=== PATIENT | female | born 1990 | race Caucasian/White ===

== ENCOUNTER 2022-10-17 11:21 | Emergency (ER) | payer OTHER, SELFPAY ==
[2022-10-17] MEDS ORDERED: DIAZEPAM 5 MG TABLET ONE (12:01)
[2022-10-17] MEDS ORDERED: HYDROCODONE/APAP 7.5/325 MG TAB ONE (12:01)
[2022-10-17] MEDS ORDERED: TDAP (DIPHTH,PERTUSS(ACELL),TET VAC) 0.5 ML VIAL IMVAC ONE (12:22)
--- NOTE | 2022-10-17 13:10 | EDPHYS ---
Physician Documentation [facility] Name: Sinai Loyola Age: 32 yrs Sex: Female : 1990 Arrival Date: 10/17/2022 Time: 11:21 Bed 9 Private MD: ED Physician Vince Bethea HPI: 10/17 11:51 This 32 yrs old Female presents to ER via Ambulatory with complaints of Dog Bite. snw 11:51 The patient was bitten on the right wrist/forearm, abdomen, and right anterior thigh. snw Onset: The symptoms/episode began/occurred suddenly, just prior to arrival. Animal information: The animal was reported to appear healthy. Animal's vaccinations are up to date. The animal is known and can be quarantined, Animal control has been notified. Secondary to the bite the patient reports pain, multiple puncture wounds. Severity of symptoms: At their worst the symptoms were moderate. The patient has not experienced similar symptoms in the past. The patient has not recently seen a physician. 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 - Social history:: Smoking status: Patient denies any tobacco usage or history of. ROS: 11:50 Constitutional: Negative for fever, chills, and weight loss, Eyes: Negative for injury, snw pain, redness, and discharge, ENT: Negative for injury, pain, and discharge, Neck: Negative for injury, pain, and swelling, Cardiovascular: Negative for chest pain, palpitations, and edema, Respiratory: Negative for shortness of breath, cough, wheezing, and pleuritic chest pain, Abdomen/GI: Negative for abdominal pain, nausea, vomiting, diarrhea, and constipation, Back: Negative for injury and pain, : Negative for injury, bleeding, discharge, and swelling, MS/Extremity: Negative for injury and deformity, Neuro: Negative for headache, weakness, numbness, tingling, and seizure, Psych: Negative for depression, anxiety, suicide ideation, homicidal ideation, and hallucinations. 11:50 Skin: Positive for puncture, Deni Dog bit pt when she went to groom a client's other dog. Pt with deep punctures to right forearm, abdomen, and right anterior upper thigh. Exam: 11:48 Head/Face: Normocephalic, atraumatic. Eyes: Pupils equal round and reactive to light, snw extra-ocular motions intact. Lids and lashes normal. Conjunctiva and sclera are non-icteric and not injected. Cornea within normal limits. Periorbital areas with no swelling, redness, or edema. ENT: Nares patent. No nasal discharge, no septal abnormalities noted. Tympanic membranes are normal and external auditory canals are clear. Oropharynx with no redness, swelling, or masses, exudates, or evidence of obstruction, uvula midline. Mucous membranes moist. Neck: Trachea midline, no thyromegaly or masses palpated, and no cervical lymphadenopathy. Supple, full range of motion without nuchal rigidity, or vertebral point tenderness. No Meningismus. Chest/axilla: Normal chest wall appearance and motion. Nontender with no deformity. No lesions are appreciated. Cardiovascular: Regular rate and rhythm with a normal S1 and S2. No gallops, murmurs, or rubs. Normal PMI, no JVD. No pulse deficits. Respiratory: Lungs have equal breath sounds bilaterally, clear to auscultation and percussion. No rales, rhonchi or wheezes noted. No increased work of breathing, no retractions or nasal flaring. Abdomen/GI: Soft, non-tender, with normal bowel sounds. No distension or tympany. No guarding or rebound. No evidence of tenderness throughout. Back: No spinal tenderness. No costovertebral tenderness. Full range of motion. Neuro: Awake and alert, GCS 15, oriented to person, place, time, and situation. Cranial nerves II-XII grossly intact. Motor strength 5/5 in all extremities. Sensory grossly intact. Cerebellar exam normal. Normal gait. 11:48 Constitutional: The patient appears alert, awake, anxious. 11:48 Skin: injury, bite(s), deep, of the right wrist, lower abdominal, anterior right thigh. Vital Signs: 11:43 BP 120 / 93; Pulse 72; Resp 20; Temp 98.2(O); Pulse Ox 100% on R/A; Pain 7/10; me1 11:48 Weight 90.72 kg; Height 5 ft. 3 in. ; me1 12:41 BP 120 / 71; Pulse 70; Resp 18; Pulse Ox 100% on R/A; mb9 11:48 Body Mass Index 35.43 (90.72 kg, 160.02 cm) me1 11:43 Pain Scale: Adult me1 MDM: 11:40 Patient medically screened. snw 13:06 Differential diagnosis: superficial laceration, tendon injury, vascular injury. Data snw reviewed: vital signs, nurses notes. I considered the following discharge prescriptions or medication management in the emergency department Medications were administered in the Emergency Department. See MAR. Counseling: I had a detailed discussion with the patient and/or guardian regarding: the historical points, exam findings, and any diagnostic results supporting the discharge/admit diagnosis, radiology results, the need for outpatient follow up, for definitive care, to return to the emergency department if symptoms worsen or persist or if there are any questions or concerns that arise at home. Response to treatment: the patient's symptoms have mildly improved after treatment. Special discussion: Based on the history and exam findings, there is no indication for further emergent testing or inpatient evaluation. I discussed with the patient/guardian the need to see the primary care provider for further evaluation of the symptoms. 10/17 11:42 [place] [facility] [place] [facility] [place], please contact 's dept; Complete snw Time: 12:21 10/17 13:06 Order name: Wound Care; Complete Time: 13:23 snw 10/17 13:06 Order name: Wound dressing: non-stick telfa and dressing; Complete Time: 13:23 snw Administered Medications: 11:52 Drug: Hydrocodone-Acetaminophen PO (7.5 mg-325 mg) 1 tabs Route: PO; me1 12:25 Follow up: Response: No adverse reaction mb9 11:52 Drug: Diazepam PO 5 mg Route: PO; me1 12:25 Follow up: Response: No adverse reaction mb9 12:20 Drug: Boostrix Tdap IM 0.5 ml {Note: [employer] [id number] 03/23/23.} Route: IM; Site: mb9 right deltoid; 12:25 Follow up: Response: No adverse reaction mb9 13:23 Drug: Hibiclens Topical Liquid 4 % 1 application Route: Topical; Site: affected area; mb9 Disposition: 15:02 Co-signature as Attending Physician, Vince Bethea DO I was immediately available on-site ms3 in the Emergency Department for consultation in the care of the patient. Disposition Summary: 10/17/22 13:10 Discharge Ordered Location: Home snw Condition: Stable snw Diagnosis - Bitten by dog snw - Puncture wound without foreign body of right wrist snw - Open wound of thigh snw - puncture wound of abdomen snw Followup: snw - With: Emergency Department - When: As needed - Reason: Worsening of condition Followup: snw - With: Private Physician - When: 2 - 3 days - Reason: Recheck today's complaints, Re-evaluation by your physician Discharge Instructions: - Discharge Summary Sheet snw - Contusion snw - Puncture Wound snw - Animal Bite, Adult snw Forms: - Work release form snw - Medication Reconciliation Form snw - Thank You Letter snw - Antibiotic Education snw - Prescription Opioid Use snw - Patient Portal Instructions snw - Leadership Thank You Letter snw Prescriptions: - Hibiclens 4 % Topical liquid - apply 1 application by TOPICAL route 2 times per day; 240 milliliter; Refills: snw 0, Product Selection Permitted - acetaminophen-codeine 300-30 mg Oral tablet - take 1 tablet by ORAL route every 8 hours as needed for pain; 20 tablet; snw Refills: 0, Product Selection Permitted - Augmentin 875-125 mg Oral Tablet - take 1 tablet by ORAL route every 12 hours for 10 days; 20 tablet; Refills: 0, snw Product Selection Permitted Signatures: Dispatcher [employer] EDConsuelo Taylor, CITRUS PICKER-C CITRUS PICKER-Csnw Vince Bethea DO DO ms3 Jamaica Salmeron, RN RN mb9 Alma Wheatley RN RN me1
--- NOTE | 2022-10-17 13:10 | ER ---
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 Coronavirus screen: Vaccine status: Patient reports being unvaccinated. At this time, the client does not indicate any symptoms associated with coronavirus-19. Ebola Screen: No symptoms or risks identified at this time. Initial Sepsis Screen: Does the patient meet any 2 criteria? No. Patient's initial sepsis screen is negative. Does the patient have a suspected source of infection? No. Patient's initial sepsis screen is negative. Risk Assessment: Do you want to hurt yourself or someone else? Patient reports no desire to harm self or others. Onset of symptoms was October 17, 2022. 11:43 Method Of Arrival: [place] [facility] [place]:43 Acuity: [place]RI[place] 4 me1 Triage Assessment: 12:24 Bite description: bite sustained to right arm and right wrist by a dog, animal mb9 information: vaccination(s) is current. General: Appears in no apparent distress. Behavior is calm, cooperative. SPECIMEN BOSS: 11:45 LMP 10/10/2022 [facility] [place] Historical: - Allergies: 11:45 No Known Allergies; nv1 - Home Meds: 11:45 None [Active]; me1 - PMHx: 11:45 None; me1 - Immunization history:: Adult Immunizations not up to date. - Social history:: Smoking status: Patient denies any tobacco usage or history of. Screenin:24 [facility] ED Fall Risk Assessment (Adult) History of falling in the last 3 months, mb9 including since admission No falls in past 3 months (0 pts) Confusion or Disorientation No (0 pts) Intoxicated or Sedated No (0 pts) Impaired Gait No (0 pts) Mobility Assist Device Used No (0 pt) Altered Elimination No (0 pt) Score/Fall Risk Level 0 - 2 = Low Risk Oriented to surroundings, Maintained a safe environment, Educated pt \\T\\ family on fall prevention, incl call for assistance when getting out of bed. Abuse screen: Denies threats or abuse. Nutritional screening: No deficits noted. Tuberculosis screening: No symptoms or risk factors identified. Assessment: 12:22 General: Appears in no apparent distress. Behavior is calm, cooperative, appropriate mb9 for age. Pain: Complains of pain in right arm and right wrist. Neuro: Benton Agitation-Sedation Scale (RASS): 0 - Alert and Calm Level of Consciousness is awake, alert, obeys commands, Oriented to person, place, time, situation, Appropriate for age. Cardiovascular: Patient's skin is warm and dry. Respiratory: Airway is patent Respiratory effort is even, unlabored, Respiratory pattern is regular, symmetrical. GI: No signs and/or symptoms were reported involving the gastrointestinal system. : No signs and/or symptoms were reported regarding the genitourinary system. Derm: Skin is intact, Skin is dry, Skin is pink, warm \\T\\ dry. dog bite noted to right wrist, thigh, and abdomen. No active bleeding noted. Musculoskeletal: Range of motion: intact in all extremities. 12:30 Reassessment: [facility] department contacted. States " we will have mb9 someone contact her.". 13:26 Reassessment: Patient and/or family updated on plan of care and expected duration. Pain mb9 level reassessed. Patient is alert, oriented x 3, equal unlabored respirations, skin warm/dry/pink. Patient states feeling better. Patient states symptoms have improved. Vital Signs: 11:43 BP 120 / 93; Pulse 72; Resp 20; Temp 98.2(O); Pulse Ox 100% on R/A; Pain 7/10; me1 11:48 Weight 90.72 kg; Height 5 ft. 3 in. ; me1 12:41 BP 120 / 71; Pulse 70; Resp 18; Pulse Ox 100% on R/A; mb9 11:48 Body Mass Index 35.43 (90.72 kg, 160.02 cm) me1 11:43 Pain Scale: Adult nv1 ED Course: 11:23 Patient arrived in ED. mg5 11:23 Consuel[facility] Zuluaga [facility]C [facility] snw 11:23 Vince Bethea DO is Attending Physician. snw 11:45 Triage completed. me1 11:45 Arm band placed on Patient placed in waiting room. me1 12:19 Forearm Right XRAY In Process Unspecified. EDMS 12:23 Bed in low position. Call light in reach. Side rails up X 1. Client placed on mb9 continuous cardiac and pulse oximetry monitoring. NIBP monitoring applied. 12:24 No provider procedures requiring assistance completed. Patient did not have IV access mb9 during this emergency room visit. 13:26 Jamaica Salmeron, RN is Primary Nurse. mb9 Administered Medications: 11:52 Drug: Hydrocodone-Acetaminophen PO (7.5 mg-325 mg) 1 tabs Route: PO; me1 12:25 Follow up: Response: No adverse reaction mb9 11:52 Drug: Diazepam PO 5 mg Route: PO; me1 12:25 Follow up: Response: No adverse reaction mb9 12:20 Drug: Boostrix Tdap IM 0.5 ml {Note: [employer] [id number] 03/23/23.} Route: IM; Site: mb9 right deltoid; 12:25 Follow up: Response: No adverse reaction mb9 13:23 Drug: Hibiclens Topical Liquid 4 % 1 application Route: Topical; Site: affected area; mb9 Medication: 12:24 VIS not applicable for this client. mb9 Outcome: 13:10 Discharge ordered by MD. snw 13:27 Discharged to home ambulatory. mb9 13:27 Condition: stable 13:27 Discharge instructions given to patient, Instructed on discharge instructions, follow up and referral plans. Demonstrated understanding of instructions, follow-up care, medications, Prescriptions given X 3. 13:27 Patient left the ED. mb9 Signatures: Dispatcher [employer] EDFL Consuelo Zuluaga, FILL PLANT OPERATOR-C FILL PLANT OPERATOR-Csnw [place] aSlmeron, RN RN mb9 Alma Wheatley RN RN me1 Merline Miller mg5 Corrections: (The following items were deleted from the chart) 12:23 12:22 Reassessment: No changes from previously documented assessment. Patient and/or mb9 family updated on plan of care and expected duration. Pain level reassessed. Patient is alert, oriented x 3, equal unlabored respirations, skin warm/dry/pink. mb9
[2022-10-17 13:31] VITALS: TEMP 98.2; O2SAT 100
[2022-10-17 13:33] VITALS: BP 120/71
--- NOTE | 2022-10-17 14:05 | RAD REPORT ---
EXAM DESCRIPTION: RAD - Forearm Right - 10/17/2022 1:57 pm CLINICAL HISTORY: PAIN;SWELLING COMPARISON: No comparisons TECHNIQUE: Right forearm, 2 views. FINDINGS: No fracture is identified. There is no dislocation or periosteal reaction noted. No foreign body. Soft tissue swelling along the distal forearm, especially laterally and along the vo lar aspect, with small locules of gas in the subcutaneous tissue. IMPRESSION: Soft tissue swelling as above with small locules of gas. No acute osseous abnormality.
== END 2022-10-17 13:27 | disposition home or self-care (01) ==
LOC: ER 11:21
DX: S61.531A Puncture wound without foreign body of right wrist, initial encounter (principal); S71.101A Unspecified open wound, right thigh, initial encounter; S31.133A Puncture wound of abdominal wall without foreign body, right lower quadrant without penetration into peritoneal cavity, initial encounter; W54.0XXA Bitten by dog, initial encounter
CPT/HCPCS: 96372; 99284